=== PATIENT | male | born 1960 | race Caucasian/White ===

== ENCOUNTER 2017-03-15 20:16 | Inpatient (IN) | payer MEDICAID ==
[~2017-03-15] VITALS: Ht 162.6 cm; Wt 83.5 kg
[2017-03-15] MEDS: NACL 0.9% 1,000 ML IV SCH
[2017-03-15 20:28] VITALS: BP 145/82
--- NOTE | 2017-03-15 20:35 | NUR ---
AMBULATED TO ER BED 10
[2017-03-15] MEDS ORDERED: NITROGLYCERIN 2% 1 GM PKT TP ONE (20:50)
[2017-03-15] MEDS ORDERED: MORPHINE SULFATE 4 MG/ML SYR IVP ONE (20:50)
[2017-03-15] MEDS ORDERED: ENALAPRILAT 2.5 MG/2 ML VIAL IVP ONE (21:05)
[2017-03-15] MEDS ORDERED: LISI-420 PO (21:16)
[2017-03-15] MEDS ORDERED: SIMV10TA1 PO (21:16)
[2017-03-15] MEDS ORDERED: METF500T2 PO (21:16)
[2017-03-15] MEDS ORDERED: ORE25 PO (21:16)
[2017-03-15 21:22] LABS: BASOPHILS # (AUTO) 0.5 K/uL (0.00-0.22); EOSINOPHILS # (AUTO) 0.3 K/uL (0-0.4); HEMATOCRIT 41.6 % (36-52); HEMOGLOBIN 13.7 g/dL (12.0-18.0); LYMPHOCYTES # (AUTO) 2.6 K/uL (2.0-11.5); MEAN CORPUSCULAR HEMOGLOBIN 27 pg (27-31); MEAN CORPUSCULAR HGB CONC 33 g/dL (33-37); MEAN CORPUSCULAR VOLUME 83 fL (80-94); MONOCYTES # (AUTO) 0.9 K/uL (0.8-1.0); NEUTROPHILS # (AUTO) 5.2 K/uL (1.8-7.7); PLATELET COUNT (AUTO) 205 K/uL (140-450); RED BLOOD CELL COUNT(AUTO) 5.02 MIL/uL (4.20-6.10); RED CELL DISTRIBUTION WIDTH 12.6 % (11.6-13.7); WHITE BLOOD COUNT (AUTO) 9.5 K/uL (4.8-10.8)
[2017-03-15 21:30] LABS: ANION GAP 13.3 (8-16); CARBON DIOXIDE 26.5 mmol/L (21-32); CREATININE 0.9 mg/dL (0.7-1.3); POTASSIUM 3.8 mmol/L (3.5-5.1)
[2017-03-15 21:36] LABS: ALBUMIN 3.6 g/dL (3.4-5.0); TOTAL BILIRUBIN 0.5 mg/dL (0.0-1.0)
[2017-03-15 21:43] LABS: CREATINE KINASE MB 5.5 ng/mL (0-3.6)
[2017-03-15] MEDS ORDERED: ONDANSETRON 4 MG/2 ML VIAL IVP PRN (22:25)
[2017-03-15] MEDS ORDERED: PANTOPRAZOLE 40 MG TABEC PO SCH (22:25)
[2017-03-15] MEDS ORDERED: HYDROcodone/APAP 7.5/325 MG 1 TAB PO PRN (22:25)
[2017-03-15] MEDS ORDERED: ACETAMINOPHEN 325 MG TAB PO PRN (22:25)
[2017-03-15] MEDS ORDERED: NITROGLYCERIN 0.4 MG TAB SL PRN (22:25)
[2017-03-15] MEDS ORDERED: METOPROLOL 25 MG TAB PO SCH (22:25)
[2017-03-15] MEDS ORDERED: DEXTROSE 50% 50 ML SYR IVP PRN (22:35)
[2017-03-15] MEDS ORDERED: INSULIN LISPRO SLIDING SCALE 100 UNITS/ML VIAL SUBQ PRN (22:35)
--- NOTE | 2017-03-15 22:45 | NUR ---
Patient will be admitted to care of Dr Bhagat. Admited to Tele. Will go to room 112B. Belongings list completed. Report to RANDI Bear.
[2017-03-15 22:50] VITALS: BP 123/80
--- NOTE | 2017-03-15 22:50 | NUR ---
PATIENT ADMITTED TO THE UNIT FROM ER. PATIENT IS AWAKE, ALERT AND ORIENTED. [place] SPEAKING. AMBULATORY. PATIENT'S IS AT BEDSIDE. NO SIGNS AND SYMPTOMS OF DISTRESS NOTED. NO COMPLAINTS OF PAIN AT THIS TIME. PT IS ON O2 2L VIA NC. IV SITES NOTED ON RIGHT HAND AND RIGHT FOREARM, BOTH SALINE LOCKED. SKIN IS INTACT. BED IN LOWEST POSITION, SIDE RAILS UP AND CALL LIGHT WITHIN REACH.
[2017-03-15 22:58] LABS: PROTHROMBIN TIME 10.6 secs (10.8-13.4)
--- NOTE | 2017-03-15 23:00 | NUR ---
PATIENT SEEN AND ASSESSED BY DR. TOWNSEND
[2017-03-15 23:09] LABS: FREE T4 (FREE THYROXINE) 0.94 ng/dL (0.76-1.46); PHOSPHORUS 3.9 mg/dL (2.5-4.9); THYROID STIMULATING HORMONE 1.97 uIU/mL (0.34-3.74)
--- NOTE | 2017-03-15 23:15 | NUR ---
USED [employer] PHONE TO TRANSLATE ASSESSMENT AND PLAN OF CARE. PATIENT AND VERBALIZED UNDERSTANDING. SHOVEL MECHANIC #: [id number]
[2017-03-15] MEDS ORDERED: MECLIZINE 25 MG TAB PO PRN (23:20)
[2017-03-15] MEDS ORDERED: LACTULOSE 20 GM/30 ML UDC PO SCH (23:40)
[2017-03-16] MEDS ORDERED: METHOCARBAMOL 500 MG TAB PO SCH
[2017-03-16] MEDS ORDERED: ASPIRIN 81 MG TAB.CHEW ONE (00:06)
[2017-03-16 00:26] LABS: APPEARANCE,URINE CLEAR (CLEAR); BILIRUBIN,URINE NEGATIVE (NEGATIVE); BLOOD, URINE NEGATIVE (NEGATIVE); COLOR,URINE YELLOW (YELLOW); LEUKOCYTE ESTERASE ,URINE NEGATIVE (NEGATIVE); NITRITE, URINE NEGATIVE (NEGATIVE); UGLUCOSE NEGATIVE (NEGATIVE)
[2017-03-16] MEDS: ASPIRIN 81 MG TAB.CHEW PO SCH ×2 (00:29→08:57)
[2017-03-16] MEDS: METHOCARBAMOL 500 MG TAB PO SCH ×5 (00:30→20:38)
[2017-03-16 00:37] LABS: RBC,URINE 0-5 (RARE) /HPF (0-5); WBC,URINE 0-5 (RARE) /HPF (0-5)
[2017-03-16 04:00] VITALS: BP 90/52
--- NOTE | 2017-03-16 04:30 | NUR ---
PATIENT'S BLOOD PRESSURE IS 90/52, HEART RATE 55. PATIENT IS ASYMPTOMATIC, NO SIGNS AND SYMPTOMS OF DISTRESS NOTED. TRIED TO CALL DR. TOWNSEND TO NOTIFY HER, NO ANSWER. WILL FOLLOW UP
[2017-03-16 05:30] VITALS: BP 100/57
--- NOTE | 2017-03-16 06:00 | NUR ---
NOTIFIED DR. CADET ABOUT PATIENT'S DECREASED BLOOD PRESSURE AND HEART RATE AROUND 0400. PATIENT'S BLOOD PRESSURE IS NOW 100/57 AND HEART RATE IS 62.
--- NOTE | 2017-03-16 06:10 | NUR ---
PATIENT WAS PICKED UP BY SOFTWARE RELIABILITY ENGINEER TO GET CT SCAN OF THE HEAD W/O CONTRAST.
[2017-03-16] MEDS: BLOOD GLUCOSE MONITORING 1 DEV DEV FS SCH ×4 (06:44→21:02)
[2017-03-16 06:48] LABS: BASOPHILS # (AUTO) 0.4 K/uL (0.00-0.22); BASOPHILS % (AUTO) 4.8 % (0.0-2.0); EOSINOPHILS # (AUTO) 0.4 K/uL (0-0.4); EOSINOPHILS % (AUTO) 4.7 % (0.0-4.0); HEMATOCRIT 39.1 % (36-52); HEMOGLOBIN 13.1 g/dL (12.0-18.0); LYMPHOCYTES # (AUTO) 2.3 K/uL (2.0-11.5); LYMPHOCYTES % (AUTO) 28.8 % (20.5-51.1); MEAN CORPUSCULAR HEMOGLOBIN 28 pg (27-31); MEAN CORPUSCULAR HGB CONC 34 g/dL (33-37); MEAN CORPUSCULAR VOLUME 83 fL (80-94); MONOCYTES # (AUTO) 0.7 K/uL (0.8-1.0); MONOCYTES % (AUTO) 8.3 % (1.7-9.3); NEUTROPHILS # (AUTO) 4.2 K/uL (1.8-7.7); NEUTROPHILS % (AUTO) 53.4 % (42.2-75.2); PLATELET COUNT (AUTO) 195 K/uL (140-450); RED BLOOD CELL COUNT(AUTO) 4.71 MIL/uL (4.20-6.10); RED CELL DISTRIBUTION WIDTH 12.7 % (11.6-13.7)
[2017-03-16 06:58] LABS: MAGNESIUM 1.8 mg/dL (1.8-2.4); PHOSPHORUS 4.2 mg/dL (2.5-4.9)
[2017-03-16 07:00] LABS: ANION GAP 12.9 (8-16); CARBON DIOXIDE 24.9 mmol/L (21-32); POTASSIUM 3.8 mmol/L (3.5-5.1)
--- NOTE | 2017-03-16 07:14 | NUR ---
PATIENT REPORT GIVEN TO MORNING NURSE AT BEDSIDE. PATIENT IS IN STABLE CONDITION.
--- NOTE | 2017-03-16 07:30 | NUR ---
PATIENT REPORT RECEIVED FROM CALENDER RUNNER AT PT BEDSIDE. PATIENT IS AWAKE, ALERT AND ORIENTED. GREEK SPEAKING. AMBULATORY. NO S/S OF DISTRESS NOTED. NO COMPLAINTS OF PAIN AT THIS TIME. PT IS ON O2 2L VIA NC. IV SITES NOTED ON RIGHT HAND, GAUGE 20, INFUSING WELL. SKIN IS INTACT. BED IN LOWEST POSITION, SIDE RAILS UP AND CALL LIGHT WITHIN REACH. WILL CONTINUE TO MONITOR.
[2017-03-16 08:00] VITALS: BP 130/85
[2017-03-16] MEDS: DOCUSATE SODIUM 100 MG GELCAP PO SCH ×3 (08:55→21:02)
[2017-03-16] MEDS: METOPROLOL 25 MG TAB PO SCH ×2 (08:55→21:00)
[2017-03-16] MEDS: LISINOPRIL 20 MG TAB PO SCH (08:56)
[2017-03-16] MEDS: HYDROCHLOROTHIAZIDE 25 MG TAB PO SCH (08:57)
[2017-03-16] MEDS: metFORMIN 500 MG TAB PO SCH (08:58)
[2017-03-16] MEDS: LACTULOSE 20 GM/30 ML UDC PO SCH (08:58)
[2017-03-16] MEDS ORDERED: NON-FORMULARY ITEM (Metformin HCl* (Glucophage Xr*) 1 TAB) PO SCH (09:00)
--- NOTE | 2017-03-16 09:07 | NUR ---
PATIENT HAS BEEN SCREENED AND CATEGORIZED MODERATE NUTRITION RISK. PATIENT WILL BE SEEN WITHIN 3-5 DAYS OF ADMISSION. 03/18/17-03/20/[address]
--- NOTE | 2017-03-16 09:39 | NUR ---
PT WAS SEEN BY PHYSICAL THERAPISTS. NO SOB NOTED.
--- NOTE | 2017-03-16 11:00 | NUR ---
PT WAS TAKEN TO RADIOLOGY FOR X-RAY RIBS. TICKET TO RIDE PROVIDED. NO DISTRESS NOTED.
[2017-03-16 12:00] VITALS: BP 112/80
[2017-03-16 16:00] VITALS: BP 118/71
--- NOTE | 2017-03-16 16:00 | NUR ---
PT IS SLEEPING, BUT EASY TO AROUSE. NO S/S OF DISTRESS NOTED. O2 SAT 95% IN ROOM AIR.
[2017-03-16] MEDS: NACL 0.9% 1,000 ML IV SCH (18:23)
--- NOTE | 2017-03-16 18:30 | NUR ---
PT HAS BEEN SEEN BY DR. WILSON. DR ORDERED STRESS TEST TOMORROW 1200. WILL HOLD STOOL SOFTENER AND LACTULOSE DUE TO BMX4.
--- NOTE | 2017-03-16 19:20 | NUR ---
ENDORSED PT TO SKI BASE TRIMMER RN. PT REPORT GIVEN AT BEDSIDE. PT IS IN STABLE CONDITION. NO S/S OF DISTRESS NOTED.
--- NOTE | 2017-03-16 19:21 | NUR ---
PATIENT REPORT RECEIVED FROM MORNING NURSE. PATIENT IS AWAKE, ALERT AND ORIENTED. NO SIGNS AND SYMPTOMS OF DISTRESS NOTED. NO COMPLAINTS OF CHEST PAIN AT THIS TIME. FAMILY IS AT BEDSIDE. IV SITE NOTED ON RIGHT HAND, IVF INFUSING WELL. BED IN LOWEST POSITION, SIDE RAILS UP AND CALL LIGHT WITHIN REACH. WILL CONTINUE TO MONITOR.
[2017-03-16 20:00] VITALS: BP 119/79
[2017-03-16] MEDS ORDERED: ASPI81CT95 PO (20:22)
[2017-03-16] MEDS ORDERED: METO25TA PO (20:22)
[2017-03-16] MEDS ORDERED: SIMVASTATIN 10 MG TAB PO SCH (21:00)
--- NOTE | 2017-03-16 21:00 | NUR ---
METOPROLOL HELD DUE TO PULSE RATE LESS THAN 60
--- NOTE | 2017-03-16 21:00 | NUR ---
COLACE HELD, DUE TO PATIENT STATING HE HAD 4 BOWEL MOVEMENTS THIS MORNING.
[2017-03-17] VITALS: BP 123/75
[2017-03-17 04:00] VITALS: BP 124/74
[2017-03-17 05:46] LABS: BASOPHILS # (AUTO) 0.4 K/uL (0.00-0.22); BASOPHILS % (AUTO) 4.7 % (0.0-2.0); EOSINOPHILS # (AUTO) 0.3 K/uL (0-0.4); EOSINOPHILS % (AUTO) 3.8 % (0.0-4.0); HEMATOCRIT 42.2 % (36-52); HEMOGLOBIN 13.9 g/dL (12.0-18.0); LYMPHOCYTES # (AUTO) 2.1 K/uL (2.0-11.5); MEAN CORPUSCULAR HEMOGLOBIN 27 pg (27-31); MEAN CORPUSCULAR HGB CONC 33 g/dL (33-37); MEAN CORPUSCULAR VOLUME 83 fL (80-94); MONOCYTES # (AUTO) 0.6 K/uL (0.8-1.0); MONOCYTES % (AUTO) 6.6 % (1.7-9.3); NEUTROPHILS # (AUTO) 5.7 K/uL (1.8-7.7); NEUTROPHILS % (AUTO) 61.9 % (42.2-75.2); PLATELET COUNT (AUTO) 202 K/uL (140-450); RED BLOOD CELL COUNT(AUTO) 5.07 MIL/uL (4.20-6.10); RED CELL DISTRIBUTION WIDTH 12.8 % (11.6-13.7); WHITE BLOOD COUNT (AUTO) 9.1 K/uL (4.8-10.8)
[2017-03-17 06:05] LABS: ANION GAP 12.8 (8-16); CARBON DIOXIDE 24.9 mmol/L (21-32); POTASSIUM 3.7 mmol/L (3.5-5.1)
[2017-03-17] MEDS: BLOOD GLUCOSE MONITORING 1 DEV DEV FS SCH ×2 (06:33→12:20)
--- NOTE | 2017-03-17 07:18 | NUR ---
PATIENT REPORT GIVEN TO MORNING NURSE AT BEDSIDE. PATIENT IS IN STABLE CONDITION.
--- NOTE | 2017-03-17 07:20 | NUR ---
PATIENT REPORT RECEIVED FROM LIFE SKILLS EDUCATOR RN AT PT BEDSIDE. PATIENT IS AWAKE, ALERT AND ORIENTED. [place]OM[place] ISLANDER SPEAKING. SCD IN PLACE. NO S/S OF DISTRESS NOTED, PT IS ON ROOM AIR. DENIES ANY PAIN AT THIS TIME. IV SITES NOTED ON RIGHT HAND, GAUGE 20, INFUSING WELL. SKIN IS INTACT. BED IN LOWEST POSITION, SIDE RAILS UP AND CALL LIGHT WITHIN REACH. WILL CONTINUE TO MONITOR.
[2017-03-17 08:07] VITALS: BP 121/75
[2017-03-17] MEDS: DOCUSATE SODIUM 100 MG GELCAP PO SCH (09:00)
[2017-03-17] MEDS: METOPROLOL 25 MG TAB PO SCH (09:00)
[2017-03-17] MEDS: LACTULOSE 20 GM/30 ML UDC PO SCH (09:00)
[2017-03-17] MEDS: HYDROCHLOROTHIAZIDE 25 MG TAB PO SCH (09:05)
[2017-03-17] MEDS: ASPIRIN 81 MG TAB.CHEW PO SCH (09:05)
[2017-03-17] MEDS: metFORMIN 500 MG TAB PO SCH (09:05)
[2017-03-17] MEDS: LISINOPRIL 20 MG TAB PO SCH (09:05)
[2017-03-17] MEDS: METHOCARBAMOL 500 MG TAB PO SCH ×2 (10:29→13:58)
--- NOTE | 2017-03-17 11:15 | NUR ---
PT WAS TAKEN TO STRESS TEST W/ ECHO. TICKET TO RIDE PROVIDED. VITALS TAKEN. PT IN STABLE CONDITION.
[2017-03-17 13:00] VITALS: BP 125/72
--- NOTE | 2017-03-17 13:00 | NUR ---
PT BACK TO THE UNIT. VITALS TAKEN. PT IN STABLE CONDITION. PT STARTED EATING LUNCH.
--- NOTE | 2017-03-17 13:45 | NUR ---
STRESS ECHO COMPLETED. PATIENT TAKEN BACK TO HIS ROOM IN STABLE CONDITION.
[2017-03-17] MEDS ORDERED: PNEUMOCOCCAL VACCINE 23 MCG/0.5 ML VIAL IMVAC SCH (14:00)
[2017-03-17] MEDS: NACL 0.9% 1,000 ML IV SCH (14:23)
--- NOTE | 2017-03-17 14:40 | NUR ---
PT HAS BEEN SEEN BY DR. CHRISTY. PT'S CONCERNS HAVE BEEN ADDRESSED BY THE MD.
--- NOTE | 2017-03-17 15:45 | NUR ---
PT DISCHARGED PER MD ORDER. MADE PT AWARE OF HIS FOLLOW UP APPOINTMENT WITH DR. JOHNSON. DISCHARGE INSTRUCTIONS AND MEDICATION TEACHING PROVIDED. PRESCRIPTION GIVEN. PT VERBALIZED UNDERSTANDING. IV CATH DC'ED, TIP INTACT, PRESSURE APPLIED. WRIST BANDS REMOVED. TELE BOX REMOVED. NO S/S OF DISTRESS NOTED. PT LEFT IN STABLE CONDITION AND WITH ALL HIS BELONGINGS.
== END 2017-03-17 15:45 | disposition home or self-care (01) | DRG 203 ==
LOC: MED 20:16 → MTU 22:23
PROVIDERS: ADMIT Family Medicine; ATTEND Family Medicine
PROC: 3E0234Z Introduction of Serum, Toxoid and Vaccine into Muscle, Percutaneous Approach (ICD-10-PCS; principal; 2017-03-15)
DX: M94.0 Chondrocostal junction syndrome [Tietze] (principal); K72.90 Hepatic failure, unspecified without coma; K75.81 Nonalcoholic steatohepatitis (NASH); E11.65 Type 2 diabetes mellitus with hyperglycemia; G90.9 Disorder of the autonomic nervous system, unspecified; E78.5 Hyperlipidemia, unspecified; E66.9 Obesity, unspecified; Z68.31 Body mass index [BMI] 31.0-31.9, adult; Z87.891 Personal history of nicotine dependence; E78.00 Pure hypercholesterolemia, unspecified; I20.9 Angina pectoris, unspecified; Z23 Encounter for immunization
CPT/HCPCS: 36415; 70450; 71010; 71111; 76705; 80048; 80053; 80305; 81001; 82140; 82150; 82550; 82553; 82948; 83036; 83690; 83735; 83880; 84100; 84439; 84443; 84484; 85025; 85379; 85610; 85730; 87081; 90732; 93005; 93880; 93925; 93970; 96374; 96375; 99285; G0482; J1815; J2270; J3490; J7030; Q0092